=== PATIENT | male | born 1940 | race Caucasian/White ===

== ENCOUNTER → 2016-11-11 | Outpatient (REF) | payer MEDICARE, BC ==
[~2016-11-11] MED LIST: /PANT40TA PO; ASPI81CH PO; BRIM2OPD OU; COUM7.5T PO; DIGO25TA PO; LIPI20TA PO; LOPR100T PO; LOSA25TA8 PO; PRED50TA2 PO; TOPR200T PO; lantanoprost OU
[2016-11-11 13:37] LABS: ALBUMIN 3.8 GM/DL (3.2-5.2); ALBUMIN/GLOBULIN RATIO 1.27 (1.00-1.93); BILIRUBIN,DIRECT 0.2 MG/DL (0.0-0.2); TOTAL PROTEIN 6.8 GM/DL (6.4-8.2)
== END ==
LOC: M LABDRWAD 12:20
PROVIDERS: ATTEND Internal Medicine Cardiovascular Disease
DX: I48.91 Unspecified atrial fibrillation (principal)

== ENCOUNTER → 2016-11-11 | Outpatient (REF) | payer MEDICARE, BC | LOC: M LABDRWAD 12:18 | PROVIDERS: ATTEND Nurse Practitioner Adult Health | DX: N40.0 Benign prostatic hyperplasia without lower urinary tract symptoms (principal) ==

== ENCOUNTER → 2016-11-11 | Outpatient (REF) | payer MEDICARE, BC ==
[2016-11-11 12:51] LABS: BASO % 0.4 % (0.0-1.0); EOS # 0.1 K/mm3 (0.0-0.50); LARGE UNSTAINED CELL # 0.1 K/mm3 (0.0-0.4); LYMPH # 1.1 K/mm3 (1.5-4.5); LYMPH % 19.8 % (24.0-44.0); MEAN CORPUSCULAR HEMOGLOBIN 32.6 pg (27.0-33.0); MEAN CORPUSCULAR HGB CONC 34.9 g/dl (32.0-36.5); MEAN CORPUSCULAR VOLUME 93.3 fl (80.0-96.0); MONO # 0.3 K/mm3 (0.0-0.8); MONO % 5.4 % (0.0-5.0); NEUTROPHILS # 3.8 K/mm3 (1.8-7.7); NEUTROPHILS % 70.5 % (36.0-66.0); PLATELET COUNT, AUTOMATED 158 k/mm3 (150-450); RED CELL DISTRIBUTION WIDTH 13.1 % (11.5-14.5); WHITE BLOOD COUNT 5.4 K/mm3 (4.0-10.0)
[2016-11-11 13:38] LABS: ALBUMIN 3.8 GM/DL (3.2-5.2); ALBUMIN/GLOBULIN RATIO 1.27 (1.00-1.93); CALCIUM LEVEL 9.3 MG/DL (8.8-10.2); CREATININE FOR GFR 1.35 MG/DL (0.70-1.30); GLOMERULAR FILTRATION RATE 54.6 (>42); POTASSIUM SERUM 4.8 MEQ/L (3.5-5.1); TOTAL PROTEIN 6.8 GM/DL (6.4-8.2)
== END | disposition home or self-care (01) ==
LOC: M LAB REF 12:16
PROVIDERS: ATTEND Emergency Medicine
DX: I10 Essential (primary) hypertension (principal); E78.2 Mixed hyperlipidemia; D50.9 Iron deficiency anemia, unspecified; I48.0 Paroxysmal atrial fibrillation; N40.0 Benign prostatic hyperplasia without lower urinary tract symptoms

== ENCOUNTER → 2017-03-27 | Day surgery (SDC) | payer MEDICARE, BC ==
[~2017-03-27] VITALS: Ht 180.3 cm; Wt 78.9 kg
[~2017-03-27] MED LIST changes: +AMIO20TA; +ATEN25TA; +ATEN25TA PO; +ATOR1TAB21; +CICL8SOL3; +COMB0.2S; +FLOM5CAP PO; +LATA5OPD; +LISI-542; +LR 1,000 ML IV ONE; +LR 1,000 ML IV SCH; +ONDANSETRON 4MG/2ML VIAL (J2405) IV PRN; +PANT40TA2; +PROPOFOL 200 MG/20 ML VIAL As Ordered ONE; +TAMSULOSIN; +XARE15TA
--- NOTE | 2017-03-27 08:20 | RO ---
DATE OF PROCEDURE: 03/27/2017 PREPROCEDURE DIAGNOSIS: Atrial flutter. POSTOPERATIVE DIAGNOSIS: Religion of sinus mechanism. PROCEDURE: Direct current cardioversion. SURGEON: Aye Keene MD FOREST PRODUCTS TEACHER: None ANESTHESIOLOGY: Anibal Smith MD BRIEF HISTORY: Mr. Grider is a 76-year-old man that has a history of persistent atypical atrial flutter for years. He was able to maintain sinus rhythm on amiodarone for several years but unfortunately, recently there was a relapse of atypical flutter, which has been difficult to rate control. After we temporarily increased the dose of amiodarone, he was brought to recovery room for direct current (DC) cardioversion. The nature of the procedure was explained to the patient on outpatient basis including the potential complications that include risk of stroke and aspiration pneumonia. He did sign appropriate consent in the office, but unfortunately because it was not delivered to the hospital on time he signed yet another consent before the procedure in the hospital. DESCRIPTION OF PROCEDURE: Procedure was performed in recovery room. Anesthesiology provided sedation. He received total 80 mg of IV propofol. When appropriate level sedation was accomplished, he was cardioverted using defibrillator patches applied in anterior position in biphasic and synchronized mode. It led tenriism to sinus rhythm, manifesting itself as principally atrial pacing. There were no immediate complications, and patient tolerated the procedure well. 12-lead ECG is pending at the time of dictation. After he meets appropriate criteria, he will be discharged home and I will see him in followup next week. JOSE
[2017-03-27 09:21] VITALS: BP 111/75
--- NOTE | 2017-03-27 19:51 | ECGEPIP ---
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
--- NOTE | 2017-03-27 19:52 | ECGEPIP ---
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 LOW QRS VOLTAGE IN EXTREMITY LEADS INFERIOR MYOCARDIAL INFARCTION, OF INDETERMINATE AGE MODERATE T-WAVE ABNORMALITY, CONSIDER ANTEROLATERAL ISCHEMIA Electronically Signed On 03-27-2017 19:52:52 EDT by Benjamín Saldana
== END | disposition home or self-care (01) ==
LOC: M SDC 07:25
PROVIDERS: ATTEND Internal Medicine Cardiovascular Disease
DX: I48.92 Unspecified atrial flutter (principal); I42.8 Other cardiomyopathies; I10 Essential (primary) hypertension; E78.00 Pure hypercholesterolemia, unspecified; K21.9 Gastro-esophageal reflux disease without esophagitis; N40.0 Benign prostatic hyperplasia without lower urinary tract symptoms; Z79.899 Other long term (current) drug therapy; Z79.01 Long term (current) use of anticoagulants; Z95.0 Presence of cardiac pacemaker

== ENCOUNTER → 2017-05-11 | Outpatient (REF) | payer MEDICARE, BC ==
[~2017-05-11] MED LIST changes: +AMIO200T; -AMIO20TA; -LR 1,000 ML IV ONE; -LR 1,000 ML IV SCH; -ONDANSETRON 4MG/2ML VIAL (J2405) IV PRN; -PROPOFOL 200 MG/20 ML VIAL As Ordered ONE
== END ==
LOC: M LABDRWAD 12:40
PROVIDERS: ATTEND Nurse Practitioner Adult Health
DX: N40.0 Benign prostatic hyperplasia without lower urinary tract symptoms (principal); Z79.899 Other long term (current) drug therapy; E78.2 Mixed hyperlipidemia; D50.9 Iron deficiency anemia, unspecified; I10 Essential (primary) hypertension

== ENCOUNTER → 2017-05-11 | Outpatient (REF) | payer MEDICARE, BC ==
[2017-05-11 12:59] LABS: BASO % 0.5 % (0.0-1.0); EOS # 0.1 K/mm3 (0.0-0.50); EOS % 2.4 % (0.0-3.0); LARGE UNSTAINED CELL # 0.1 K/mm3 (0.0-0.4); LARGE UNSTAINED CELL % 1.4 % (0.0-4.0); LYMPH % 16.5 % (24.0-44.0); MEAN CORPUSCULAR HEMOGLOBIN 31.7 pg (27.0-33.0); MEAN CORPUSCULAR HGB CONC 33.4 g/dl (32.0-36.5); MEAN CORPUSCULAR VOLUME 94.9 fl (80.0-96.0); MONO # 0.3 K/mm3 (0.0-0.8); MONO % 5.3 % (0.0-5.0); NEUTROPHILS # 4.3 K/mm3 (1.8-7.7); NEUTROPHILS % 73.9 % (36.0-66.0); PLATELET COUNT, AUTOMATED 149 k/mm3 (150-450); RED CELL DISTRIBUTION WIDTH 13.8 % (11.5-14.5); WHITE BLOOD COUNT 5.8 K/mm3 (4.0-10.0)
[2017-05-11 13:36] LABS: ALBUMIN 3.6 GM/DL (3.2-5.2); ALBUMIN/GLOBULIN RATIO 1.09 (1.00-1.93); BILIRUBIN,TOTAL 1.1 MG/DL (0.2-1.0); CREATININE FOR GFR 1.52 MG/DL (0.70-1.30); GLOMERULAR FILTRATION RATE 47.6 (>42); POTASSIUM SERUM 4.7 MEQ/L (3.5-5.1); TOTAL PROTEIN 6.9 GM/DL (6.4-8.2)
== END ==
LOC: M LABDRWAD 12:38
PROVIDERS: ATTEND Emergency Medicine
DX: E78.2 Mixed hyperlipidemia (principal); D50.9 Iron deficiency anemia, unspecified; I10 Essential (primary) hypertension

== ENCOUNTER → 2017-11-11 | Outpatient (REF) | payer MEDICARE, BC ==
[2017-11-11 13:17] LABS: PROSTATIC SPECIFIC AG MONITOR 4.87 NG/ML (< 4.0)
== END ==
LOC: M LABDRWAD 12:36
DX: N40.0 Benign prostatic hyperplasia without lower urinary tract symptoms (principal)
CPT/HCPCS: 84153

== ENCOUNTER → 2017-11-23 | Outpatient (REF) | payer MEDICARE, BC ==
[2017-11-23 13:50] LABS: BASO # 0.1 10^3/uL (0.0-0.2); BASO % 0.9 % (0.0-1.0); EOS # 0.1 10^3/uL (0.0-0.50); EOS % 2.1 % (0.0-3.0); HEMATOCRIT 43.6 % (42.0-52.0); HEMOGLOBIN 14.8 g/dl (14.0-18.0); IMMATURE GRANULOCYTE % 0.6 % (0-0); LYMPH # 0.9 10^3/uL (1.5-4.5); LYMPH % 16.6 % (24.0-44.0); MEAN CORPUSCULAR HEMOGLOBIN 31.3 pg (27.0-33.0); MEAN CORPUSCULAR HGB CONC 33.9 g/dl (32.0-36.5); MEAN CORPUSCULAR VOLUME 92.2 fl (80.0-96.0); MONO # 0.5 10^3/uL (0.0-0.8); NEUTROPHILS # 3.7 10^3/uL (1.8-7.7); NEUTROPHILS % 69.8 % (36.0-66.0); PLATELET COUNT, AUTOMATED 178 10^3/uL (150-450); RED BLOOD COUNT 4.73 10^6/uL (4.30-6.10); RED CELL DISTRIBUTION WIDTH 13.3 % (11.5-14.5); WHITE BLOOD COUNT 5.3 10^3/uL (4.0-10.0)
[2017-11-23 14:06] LABS: ALBUMIN 3.5 GM/DL (3.2-5.2); ALBUMIN/GLOBULIN RATIO 1.06 (1.00-1.93); ALKALINE PHOSPHATASE 75 U/L (45-117); ALT/SGPT 20 U/L (12-78); ANION GAP 5 MEQ/L (8-16); AST/SGOT 17 U/L (7-37); BLOOD UREA NITROGEN 17 MG/DL (7-18); CALCIUM LEVEL 8.9 MG/DL (8.8-10.2); CARBON DIOXIDE LEVEL 29 MEQ/L (21-32); CHLORIDE LEVEL 108 MEQ/L (98-107); CHOLESTEROL LEVEL 131 MG/DL (<200); CHOLESTEROL RISK RATIO 2.911 (<5); CREATININE FOR GFR 1.21 MG/DL (0.70-1.30); GLOMERULAR FILTRATION RATE > 60.0 (>42); GLUCOSE, FASTING 105 MG/DL (70-100); HDL CHOLESTEROL 45 MG/DL (>40); LDL CHOLESTEROL 72.4 MG/DL (<100); MAGNESIUM LEVEL 2.5 MG/DL (1.8-2.4); NON-HDL-C 86 MG/DL; POTASSIUM SERUM 4.6 MEQ/L (3.5-5.1); SODIUM LEVEL 142 MEQ/L (136-145); TOTAL PROTEIN 6.8 GM/DL (6.4-8.2); TRIGLYCERIDES LEVEL 68 MG/DL (<150)
== END ==
LOC: M LAB REF 13:17
DX: I48.0 Paroxysmal atrial fibrillation (principal); I10 Essential (primary) hypertension; E78.2 Mixed hyperlipidemia; D50.9 Iron deficiency anemia, unspecified
CPT/HCPCS: 83735

== ENCOUNTER → 2018-05-11 | Outpatient (CLI) | payer MEDICARE, BC ==
[2018-05-11 12:55] LABS: BLOOD UREA NITROGEN 24 MG/DL (7-18)
[2018-05-11 12:55] LABS: CREATININE FOR GFR 1.53 MG/DL (0.70-1.30); GLOMERULAR FILTRATION RATE 47.1 (>42); PROSTATIC SPECIFIC AG MONITOR 4.92 NG/ML (< 4.0)
== END ==
LOC: M ADAMS 10:55
DX: N40.0 Benign prostatic hyperplasia without lower urinary tract symptoms (principal)
CPT/HCPCS: 82565

== ENCOUNTER → 2018-05-24 | Outpatient (REF) | payer MEDICARE, BC ==
[2018-05-24 12:59] LABS: BASO % 0.5 % (0.0-1.0); EOS # 0.1 10^3/uL (0.0-0.50); EOS % 1.7 % (0.0-3.0); HEMATOCRIT 42.7 % (42.0-52.0); HEMOGLOBIN 14.3 g/dl (13.5-17.5); IMMATURE GRANULOCYTE % 0.3 % (0-3.0); LYMPH % 16.6 % (24.0-44.0); MEAN CORPUSCULAR HEMOGLOBIN 31.2 pg (27.0-33.0); MEAN CORPUSCULAR HGB CONC 33.5 g/dl (32.0-36.5); MONO # 0.5 10^3/uL (0.0-0.8); MONO % 8.4 % (0.0-5.0); NEUTROPHILS # 4.2 10^3/uL (1.8-7.7); NEUTROPHILS % 72.5 % (36.0-66.0); PLATELET COUNT, AUTOMATED 144 10^3/uL (150-450); RED BLOOD COUNT 4.59 10^6/uL (4.30-6.10); RED CELL DISTRIBUTION WIDTH 14.5 % (11.5-14.5); WHITE BLOOD COUNT 5.8 10^3/uL (4.0-10.0)
[2018-05-24 13:32] LABS: ALBUMIN 3.4 GM/DL (3.2-5.2); ALBUMIN/GLOBULIN RATIO 1.06 (1.00-1.93); ALKALINE PHOSPHATASE 71 U/L (45-117); ALT/SGPT 47 U/L (12-78); ANION GAP 7 MEQ/L (8-16); AST/SGOT 36 U/L (7-37); BILIRUBIN,TOTAL 0.8 MG/DL (0.2-1.0); BLOOD UREA NITROGEN 21 MG/DL (7-18); CALCIUM LEVEL 8.8 MG/DL (8.8-10.2); CARBON DIOXIDE LEVEL 29 MEQ/L (21-32); CHLORIDE LEVEL 108 MEQ/L (98-107); CHOLESTEROL LEVEL 123 MG/DL (<200); CHOLESTEROL RISK RATIO 2.795 (<5); CREATININE FOR GFR 1.45 MG/DL (0.70-1.30); GLOMERULAR FILTRATION RATE 50.1 (>42); GLUCOSE, FASTING 103 MG/DL (70-100); HDL CHOLESTEROL 44 MG/DL (>40); LDL CHOLESTEROL 60.6 MG/DL (<100); NON-HDL-C 79 MG/DL; POTASSIUM SERUM 4.7 MEQ/L (3.5-5.1); SODIUM LEVEL 144 MEQ/L (136-145); TOTAL PROTEIN 6.6 GM/DL (6.4-8.2); TRIGLYCERIDES LEVEL 92 MG/DL (<150)
== END ==
LOC: M LABDRWAD 12:30
DX: I10 Essential (primary) hypertension (principal); E78.2 Mixed hyperlipidemia; Z00.00 Encounter for general adult medical examination without abnormal findings
CPT/HCPCS: 80053

== ENCOUNTER 2018-06-14 07:24 | Day surgery (SDC) | payer MEDICARE, BC ==
[2018-06-14] MEDS: NS 1,000 ML IV (07:58)
[2018-06-14] MEDS ORDERED: PROPOFOL 200 MG/20 ML VIAL As Ordered (09:06)
== END 2018-06-14 10:01 | disposition home or self-care (01) ==
LOC: M OPP 07:24
DX: Z12.11 Encounter for screening for malignant neoplasm of colon (principal); Z86.010 Personal history of colon polyps; Z80.0 Family history of malignant neoplasm of digestive organs; D12.5 Benign neoplasm of sigmoid colon; D12.2 Benign neoplasm of ascending colon; D12.0 Benign neoplasm of cecum; K57.30 Diverticulosis of large intestine without perforation or abscess without bleeding; K64.0 First degree hemorrhoids; I48.91 Unspecified atrial fibrillation; I10 Essential (primary) hypertension; E78.5 Hyperlipidemia, unspecified; Z95.0 Presence of cardiac pacemaker; K21.9 Gastro-esophageal reflux disease without esophagitis; R12 Heartburn; R23.3 Spontaneous ecchymoses; N40.1 Benign prostatic hyperplasia with lower urinary tract symptoms; Z79.899 Other long term (current) drug therapy; Z79.01 Long term (current) use of anticoagulants
CPT/HCPCS: 45385

== ENCOUNTER → 2018-12-15 | Outpatient (REF) | payer MEDICARE, BC ==
[~2018-12-15] MED LIST changes: -AMIO200T; +AMIO200T PO; -COMB0.2S; +COMB0.2S OU; +FLOM0.4C39 PO; -FLOM5CAP PO; -LATA5OPD; +LATA5OPD OU; -PANT40TA2; +PANT40TA3
== END ==
LOC: M SFHCADAM 09:31
PROVIDERS: ATTEND Family Medicine
DX: E78.5 Hyperlipidemia, unspecified (principal); I11.0 Hypertensive heart disease with heart failure; K22.70 Barrett's esophagus without dysplasia; E53.8 Deficiency of other specified B group vitamins; Z79.01 Long term (current) use of anticoagulants; R73.03 Prediabetes; Z53.8 Procedure and treatment not carried out for other reasons

== ENCOUNTER → 2019-04-21 | Outpatient (CLI) | payer MEDICARE, BC ==
[~2019-04-21] MED LIST changes: -/PANT40TA PO; +LATA0.0013 OU; -LATA5OPD OU; +METO200T41 PO; +PROT1TAB2 PO; -TOPR200T PO
[2019-04-21 13:17] LABS: HEMATOCRIT 45.5 % (42.0-52.0); HEMOGLOBIN 15.1 g/dl (13.5-17.5); MEAN CORPUSCULAR HEMOGLOBIN 30.8 pg (27.0-33.0); MEAN CORPUSCULAR HGB CONC 33.2 g/dl (32.0-36.5); MEAN CORPUSCULAR VOLUME 92.7 fl (80.0-96.0); PLATELET COUNT, AUTOMATED 188 10^3/uL (150-450); RED BLOOD COUNT 4.91 10^6/uL (4.30-6.10); WHITE BLOOD COUNT 5.9 10^3/uL (4.0-10.0)
[2019-04-21 13:21] LABS: CALCIUM LEVEL 9.5 MG/DL (8.8-10.2); CREATININE FOR GFR 1.36 MG/DL (0.70-1.30); GLOMERULAR FILTRATION RATE 53.8 (>42); POTASSIUM SERUM 4.6 MEQ/L (3.5-5.1)
== END ==
LOC: M SMT 09:45
PROVIDERS: ATTEND Internal Medicine Cardiovascular Disease
DX: I48.0 Paroxysmal atrial fibrillation (principal); I42.9 Cardiomyopathy, unspecified

== ENCOUNTER 2019-06-02 05:53 | Day surgery (SDC) | payer MEDICARE, BC ==
[~2019-06-02] VITALS: Ht 180.3 cm; Wt 74.1 kg
[~2019-06-02 05:53] MED LIST changes: +BIMA01SOL OP; +METO25TA4 PO; +SILD100T PO
[2019-06-02] MEDS ORDERED: LR 1,000 ML IV ONE (06:45)
[2019-06-02] MEDS ORDERED: PROPOFOL 200 MG/20 ML VIAL As Ordered ONE (06:56)
[2019-06-02] MEDS ORDERED: LIDOCAINE 2% INJ 100 MG/5 ML SDV (FOR ANES.) As Ordered ONE (06:56)
--- NOTE | 2019-06-02 07:33 | RO ---
DATE OF PROCEDURE: 06/02/2019 INDICATION: Atrial flutter. PROCEDURE: Cardioversion. POSTPROCEDURE DIAGNOSIS: Resumption of sinus rhythm. SURGEON: Dr. Aye Keene COMPANY CONTROLLER: Heri Smith DO and Elisabeth Mccartney CRNA ANESTHESIA: BRIEF HISTORY: Mr. Grider is a 78-year-old man who has history of paroxysmal atrial flutter that is atypical in nature. He had two ablations in the distant past, but was doing well in the last 2 years until he relapsed 2 months ago. In spite of rate controlling medications and amiodarone, he has been challenging to accomplish rate control. Consequently, we decided to proceed with direct current (DC) cardioversion. DESCRIPTION OF PROCEDURE: The consent for the procedure was obtained previously on outpatient basis. The patient presented to the recovery room in a fasting condition. After appropriate time out was taken and all appropriate monitors were applied, he was cardioverted using 125 joules of energy applied in synchronized fashion. It led to buddhism of sinus mechanism with onset of atrial pacing. He tolerated the procedure well and there were no immediate complications. A 12-lead ECG is pending at the time of my dictation. He will be discharged home on his chronic medications and followup will be arranged in our office in approximately 1-2 weeks.
[2019-06-02 08:15] VITALS: BP 109/74
--- NOTE | 2019-06-02 09:59 | ECGEPIP ---
[facility] Test Date: 2019-06-02 Pat Name: TAMARA RICHARD Department: Room: - Gender: Male Member Service Specialist: BRI : 1940 Requested By: Aye Keene Order Number: [id number] Reading MD: Benjamín Rivero Measurements Intervals [place] Rate: 110 P: -26 [place]: 245 QRS: -69 QRSD: 186 T: 83 QT: 432 QTc: 587 Interpretive Statements ELECTRONIC VENTRICULAR PACEMAKER ABNORMAL RHYTHM ECG Electronically Signed on 06-02-2019 9:59:25 EDT by Benjamín Rivero
--- NOTE | 2019-06-02 10:01 | ECGEPIP ---
[facility] Test Date: 2019-06-02 Pat Name: TAMARA RICHARD Department: Room: - Gender: Male Crew Leader: BRI : 1940 Requested By: Aye Keene Order Number: [id number] Reading MD: Benjamín Rivero Measurements Intervals [place] Rate: 60 P: 266 CA: 277 QRS: -38 QRSD: 111 T: 267 QT: 457 QTc: 457 Interpretive Statements ELECTRONIC ATRIAL PACEMAKER Low QRS complex voltage in the limb leads Delayed anterior R wave progression INFERIOR MYOCARDIAL INFARCTION, OF INDETERMINATE AGE MODERATE T-WAVE ABNORMALITY, CONSIDER ANTEROLATERAL ISCHEMIA Previous tracing done 06-02-19 at 0628 show Ventricular pacing Electronically Signed on 06-02-2019 10:01:43 EDT by Benjamín Rivero
== END 2019-06-02 08:24 | disposition home or self-care (01) ==
LOC: M SDC 05:53
PROVIDERS: ATTEND Internal Medicine Cardiovascular Disease
DX: I48.0 Paroxysmal atrial fibrillation (principal); I10 Essential (primary) hypertension; E78.5 Hyperlipidemia, unspecified; Z79.01 Long term (current) use of anticoagulants; Z79.899 Other long term (current) drug therapy; Z95.0 Presence of cardiac pacemaker; N40.0 Benign prostatic hyperplasia without lower urinary tract symptoms

== ENCOUNTER → 2019-06-13 | Outpatient (REF) | payer MEDICARE, BC ==
[2019-06-13 12:33] LABS: HEMATOCRIT 45.4 % (42.0-52.0); HEMOGLOBIN 14.9 g/dl (13.5-17.5); MEAN CORPUSCULAR HEMOGLOBIN 30.7 pg (27.0-33.0); MEAN CORPUSCULAR HGB CONC 32.8 g/dl (32.0-36.5); MEAN CORPUSCULAR VOLUME 93.6 fl (80.0-96.0); PLATELET COUNT, AUTOMATED 136 10^3/uL (150-450); RED BLOOD COUNT 4.85 10^6/uL (4.30-6.10); WHITE BLOOD COUNT 4.7 10^3/uL (4.0-10.0)
[2019-06-13 12:44] LABS: ALBUMIN 3.5 GM/DL (3.2-5.2); BILIRUBIN,TOTAL 1.3 MG/DL (0.2-1.0); CHOLESTEROL RISK RATIO 2.6 (<5); CREATININE FOR GFR 1.43 MG/DL (0.70-1.30); GLOMERULAR FILTRATION RATE 50.8 (>42); POTASSIUM SERUM 4.2 MEQ/L (3.5-5.1); TOTAL PROTEIN 6.8 GM/DL (6.4-8.2)
[2019-06-13 13:11] LABS: HEMOGLOBIN A1c 6.1 %
== END ==
LOC: M SFHCADAM 08:18
PROVIDERS: ATTEND Family Medicine
DX: E78.5 Hyperlipidemia, unspecified (principal); I11.0 Hypertensive heart disease with heart failure; K22.70 Barrett's esophagus without dysplasia; E53.8 Deficiency of other specified B group vitamins; Z79.01 Long term (current) use of anticoagulants; R73.03 Prediabetes

== ENCOUNTER → 2019-09-16 | Outpatient (CLI) | payer MEDICARE, BC ==
[2019-09-16 15:14] LABS: ALBUMIN 3.4 GM/DL (3.2-5.2); BILIRUBIN,DIRECT 0.2 MG/DL (0.0-0.2); BILIRUBIN,TOTAL 0.9 MG/DL (0.2-1.0); TOTAL PROTEIN 6.9 GM/DL (6.4-8.2)
== END ==
LOC: M LAB 13:49
PROVIDERS: ATTEND Dermatology
DX: B35.3 Tinea pedis (principal)
CPT/HCPCS: 17000; 17003; 17110; 36415; 80076; G0463

== ENCOUNTER → 2019-09-16 | Outpatient (REF) | payer MEDICARE, BC | LOC: M SFHCDERM 13:39 | PROVIDERS: ATTEND Dermatology | DX: B35.3 Tinea pedis (principal); Z53.8 Procedure and treatment not carried out for other reasons ==

== ENCOUNTER → 2019-10-12 | Outpatient (REF) | payer MEDICARE, BC | LOC: M LAB REF 18:35 | PROVIDERS: ATTEND Dermatology | DX: L72.0 Epidermal cyst (principal) ==

== ENCOUNTER → 2019-10-31 | Outpatient (CLI) | payer MEDICARE, BC ==
--- NOTE | 2019-10-31 13:27 | REP ---
Clinical: Venous insufficiency . Technique: Hernandez scale and color Doppler evaluation using linear high frequency transducer with reflux evaluation. Findings: Ultrasound examination of the right and left lower extremity deep venous structures from the common femoral vein to the popliteal vein demonstrates normal compressibility flow and wave patterns in response to respiration and augmentation. There is no evidence for deep venous thrombosis. 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 Right lower extremity demonstrates reflux through the deep system as well as reflux involving the proximal greater saphenous vein measuring 12.9 mm diameter with reflux duration 4.6 seconds and mid greater saphenous vein measuring 5.1 mm diameter with reflux duration 4.6 seconds. A large collateral vessels identified off the mid greater saphenous vein. Left lower extremity demonstrates reflux through the deep system. No evidence of reflux through the superficial system. Impression: No evidence for deep venous thrombosis. Reflux as noted above. Electronically Signed by Arley Kwon MD 10/31/2019 01:19 P
== END ==
LOC: M RAD 11:30
PROVIDERS: ATTEND Physician Assistant
DX: I82.812 Embolism and thrombosis of superficial veins of left lower extremity (principal)

== ENCOUNTER → 2020-05-21 | Outpatient (REF) | payer MEDICARE, BC ==
[~2020-05-21] MED LIST changes: -AMIO200T PO; +AMIO200T3 PO; +PANT40TA29; -PANT40TA3
[2020-05-21 13:21] LABS: HEMATOCRIT 44.7 % (42.0-52.0); HEMOGLOBIN 14.8 g/dl (13.5-17.5); MEAN CORPUSCULAR HGB CONC 33.1 g/dl (32.0-36.5); MEAN CORPUSCULAR VOLUME 93.7 fl (80.0-96.0); PLATELET COUNT, AUTOMATED 302 10^3/uL (150-450); RED BLOOD COUNT 4.77 10^6/uL (4.30-6.10); WHITE BLOOD COUNT 8.8 10^3/uL (4.0-10.0)
[2020-05-21 13:24] LABS: ALBUMIN 2.8 GM/DL (3.2-5.2); BILIRUBIN,TOTAL 0.9 MG/DL (0.2-1.0); CHOLESTEROL RISK RATIO 3.5 (<5); CREATININE FOR GFR 1.42 MG/DL (0.70-1.30); GLOMERULAR FILTRATION RATE 51.1 (>35); POTASSIUM SERUM 4.9 MEQ/L (3.5-5.1); PROSTATIC SPECIFIC AG MONITOR 8.24 NG/ML (< 4.00); TOTAL PROTEIN 6.5 GM/DL (6.4-8.2)
[2020-05-21 13:44] LABS: HEMOGLOBIN A1c 5.8 %
== END ==
LOC: M SFHCADAM 09:01
PROVIDERS: ATTEND Family Medicine
DX: D50.9 Iron deficiency anemia, unspecified (principal); N18.3 Chronic kidney disease, stage 3 (moderate); E78.2 Mixed hyperlipidemia; R73.03 Prediabetes; E78.5 Hyperlipidemia, unspecified; E53.8 Deficiency of other specified B group vitamins; R97.20 Elevated prostate specific antigen [PSA]; Z79.01 Long term (current) use of anticoagulants

== ENCOUNTER → 2020-08-17 | Outpatient (REF) | payer MEDICARE, BC | LOC: M LAB REF 12:32 → M LABDRWAD 12:32 | PROVIDERS: ATTEND Nurse Practitioner Adult Health | DX: N42.9 Disorder of prostate, unspecified (principal) ==

== ENCOUNTER → 2020-12-27 | Outpatient (REF) | payer MEDICARE, BC ==
[~2020-12-27] MED LIST changes: -LISI-542; +LISI-898
[2020-12-27 18:01] LABS: BLOOD UREA NITROGEN 18 MG/DL (7-18); CARBON DIOXIDE LEVEL 30 MEQ/L (21-32); CHLORIDE LEVEL 107 MEQ/L (98-107); CREATININE FOR GFR 1.22 MG/DL (0.70-1.30); GLOMERULAR FILTRATION RATE > 60.0 (>35); GLUCOSE, FASTING 92 MG/DL (70-100); POTASSIUM SERUM 4.5 MEQ/L (3.5-5.1); SODIUM LEVEL 140 MEQ/L (136-145)
== END ==
LOC: M LABDRWAD 16:15 → M LAB REF 16:15
PROVIDERS: ATTEND Physician Assistant
DX: E78.2 Mixed hyperlipidemia (principal)
CPT/HCPCS: 36415; 80048; G0463

== ENCOUNTER → 2021-09-18 | Outpatient (REF) | payer MEDICARE, BC ==
[2021-09-18 12:48] LABS: HEMATOCRIT 44.1 % (42.0-52.0); HEMOGLOBIN 14.6 g/dl (13.5-17.5); MEAN CORPUSCULAR HEMOGLOBIN 30.8 pg (27.0-33.0); MEAN CORPUSCULAR HGB CONC 33.1 g/dl (32.0-36.5); PLATELET COUNT, AUTOMATED 143 10^3/uL (150-450); RED BLOOD COUNT 4.74 10^6/uL (4.30-6.10)
[2021-09-18 13:20] LABS: ALBUMIN 3.3 GM/DL (3.2-5.2); BILIRUBIN,TOTAL 1.7 MG/DL (0.2-1.0); CALCIUM LEVEL 9.5 MG/DL (8.8-10.2); CHOLESTEROL RISK RATIO 2.914 (<5); CREATININE FOR GFR 1.28 MG/DL (0.70-1.30); GLOMERULAR FILTRATION RATE 57.4 (>35); POTASSIUM SERUM 4.7 MEQ/L (3.5-5.1); TOTAL PROTEIN 6.8 GM/DL (6.4-8.2)
== END ==
LOC: M LABDRWAD 12:35
PROVIDERS: ATTEND Physician Assistant
DX: E78.2 Mixed hyperlipidemia (principal)

== ENCOUNTER → 2022-10-15 | Outpatient (REF) | payer MEDICARE, BC ==
[~2022-10-15] MED LIST changes: -AMIO200T3 PO; +AMIO200T49 PO; +CICL6.6S; -CICL8SOL3; -LISI-898; +LISI5TAB11
== END ==
LOC: M LABDRWAD 12:51
PROVIDERS: ATTEND Nurse Practitioner Adult Health
DX: N40.1 Benign prostatic hyperplasia with lower urinary tract symptoms (principal)

== ENCOUNTER → 2022-12-15 | Outpatient (REF) | payer MEDICARE, BC ==
[2022-12-15 13:00] LABS: HEMATOCRIT 44.7 % (42.0-52.0); HEMOGLOBIN 14.8 g/dl (13.5-17.5); MEAN CORPUSCULAR HEMOGLOBIN 30.9 pg (27.0-33.0); MEAN CORPUSCULAR HGB CONC 33.1 g/dl (32.0-36.5); MEAN CORPUSCULAR VOLUME 93.3 fl (80.0-96.0); PLATELET COUNT, AUTOMATED 172 10^3/uL (150-450); RED BLOOD COUNT 4.79 10^6/uL (4.30-6.10)
[2022-12-15 13:37] LABS: HEMOGLOBIN A1c 5.8 % (4.0-6.0)
[2022-12-15 13:46] LABS: ALBUMIN 3.5 G/DL (3.2-5.2); CALCIUM LEVEL 9.4 MG/DL (8.3-10.6); CHOLESTEROL RISK RATIO 2.85 (<5); CREATININE FOR GFR 1.24 MG/DL (0.70-1.30); GLOMERULAR FILTRATION RATE 59.3 (>35); HDL CHOLESTEROL 41.7 MG/DL (>40); LDL CHOLESTEROL 59.3 MG/DL (<100); POTASSIUM SERUM 4.4 MMOL/L (3.5-5.1); TOTAL PROTEIN 6.6 G/DL (5.7-8.2)
== END ==
LOC: M SFHCADAM 08:55
PROVIDERS: ATTEND Family Medicine
DX: E78.2 Mixed hyperlipidemia (principal); Z85.820 Personal history of malignant melanoma of skin; I11.0 Hypertensive heart disease with heart failure; K22.70 Barrett's esophagus without dysplasia; R73.03 Prediabetes

== ENCOUNTER → 2023-01-30 | Outpatient (REF) | payer MEDICARE, BC | LOC: M SFHCDERM 14:00 | PROVIDERS: ATTEND Nurse Practitioner Family | DX: D22.61 Melanocytic nevi of right upper limb, including shoulder (principal) ==

== ENCOUNTER → 2023-03-17 | Outpatient (REF) | payer MEDICARE, BC | LOC: M LAB REF 17:42 | PROVIDERS: ATTEND Surgery | DX: L57.9 Skin changes due to chronic exposure to nonionizing radiation, unspecified (principal); L90.5 Scar conditions and fibrosis of skin ==

== ENCOUNTER 2023-06-04 12:33 | Emergency (ER) | payer MEDICARE, BC ==
[~2023-06-04] VITALS: Ht 177.8 cm; Wt 68.6 kg
[2023-06-04] MEDS ORDERED: CEPHALEXIN 500 MG CAP PO ONE (16:05)
[2023-06-04] MEDS ORDERED: CEPH500C PO (16:05)
[2023-06-04] MEDS ORDERED: LIDOCAINE 2% 5ML JELLY UROJET TOP ONE (16:20)
[2023-06-04 16:32] VITALS: BP 126/69; TEMP 98.4; O2SAT 99
== END 2023-06-04 16:34 | disposition home or self-care (01) ==
LOC: M ED 12:33
DX: N39.0 Urinary tract infection, site not specified (principal); R33.9 Retention of urine, unspecified; N40.0 Benign prostatic hyperplasia without lower urinary tract symptoms; I10 Essential (primary) hypertension; Z95.0 Presence of cardiac pacemaker

== ENCOUNTER 2023-06-24 02:47 | Emergency (ER) | payer MEDICARE, BC ==
[~2023-06-24] VITALS: Ht 177.8 cm; Wt 76.7 kg
[~2023-06-24 02:47] MED LIST changes: +CEPH500C PO
[2023-06-24] MEDS ORDERED: CEFD300C41 PO (05:02)
[2023-06-24] MEDS ORDERED: CEFDINIR 300 MG CAP (OMNICEF) PO ONE (05:05)
[2023-06-24 05:27] VITALS: BP 117/71; TEMP 98.6; O2SAT 99
== END 2023-06-24 05:29 | disposition home or self-care (01) ==
LOC: M ED 02:47
DX: R33.9 Retention of urine, unspecified (principal); I10 Essential (primary) hypertension; N40.1 Benign prostatic hyperplasia with lower urinary tract symptoms; Z79.01 Long term (current) use of anticoagulants; Z79.899 Other long term (current) drug therapy

== ENCOUNTER → 2023-07-01 | Outpatient (REF) | payer MEDICARE, BC ==
[~2023-07-01] MED LIST changes: +CEFD300C41 PO
[2023-07-01 13:03] LABS: INR 1.91; PROTHROMBIN TIME 21.4 SECONDS (12.5-14.5)
[2023-07-01 13:04] LABS: PARTIAL THROMBOPLASTIN TIME 50.2 SECONDS (24.8-34.2)
[2023-07-01 13:26] LABS: BASO # 0.1 10^3/uL (0.0-0.2); BASO % 0.8 % (0.0-1.0); EOS # 0.2 10^3/uL (0.0-0.5); EOS % 3.7 % (0.0-3.0); HEMATOCRIT 41.5 % (42.0-52.0); HEMOGLOBIN 13.9 g/dl (13.5-17.5); LYMPH # 1.2 10^3/uL (1.5-5.0); LYMPH % 19.6 % (24.0-44.0); MEAN CORPUSCULAR HEMOGLOBIN 31.9 pg (27.0-33.0); MEAN CORPUSCULAR HGB CONC 33.5 g/dl (32.0-36.5); MEAN CORPUSCULAR VOLUME 95.2 fl (80.0-96.0); MONO # 0.5 10^3/uL (0.0-0.8); MONO % 8.2 % (2.0-8.0); NEUTROPHILS # 4.1 10^3/uL (1.5-8.5); NEUTROPHILS % 67.4 % (36.0-66.0); PLATELET COUNT, AUTOMATED 178 10^3/uL (150-450); RED BLOOD COUNT 4.36 10^6/uL (4.30-6.10)
[2023-07-01 13:53] LABS: ALBUMIN 3.2 G/DL (3.2-5.2); ALKALINE PHOSPHATASE 66 U/L (46-116); ALT/SGPT 15 U/L (7.0-40); AST/SGOT 13 U/L (<34); BILIRUBIN,TOTAL 0.8 MG/DL (0.3-1.2); BLOOD UREA NITROGEN 18 MG/DL (9-23); CARBON DIOXIDE LEVEL 29 MMOL/L (20-31); CHLORIDE LEVEL 107 MMOL/L (98-107); CREATININE FOR GFR 1.18 MG/DL (0.70-1.30); GLOMERULAR FILTRATION RATE > 60.0 (>35); GLUCOSE, FASTING 111 MG/DL (74-106); POTASSIUM SERUM 4.4 MMOL/L (3.5-5.1); SODIUM LEVEL 142 MMOL/L (136-145); TOTAL PROTEIN 6.5 G/DL (5.7-8.2)
== END ==
LOC: M LABDRWAD 12:28
PROVIDERS: ATTEND Urology
DX: N40.1 Benign prostatic hyperplasia with lower urinary tract symptoms (principal); R33.8 Other retention of urine

== ENCOUNTER → 2023-07-12 | Outpatient (CLI) | payer MEDICARE, BC ==
[2023-07-12 10:17] LABS: INR 1.25; PROTHROMBIN TIME 15.4 SECONDS (12.5-14.5)
== END ==
LOC: M LAB 09:19
PROVIDERS: ATTEND Physician Assistant
DX: I48.91 Unspecified atrial fibrillation (principal)

== ENCOUNTER → 2023-12-22 | Outpatient (REF) | payer MEDICARE, BC ==
[~2023-12-22] MED LIST changes: +CEFD1CAP9 PO; -CEFD300C41 PO
[2023-12-22 14:11] LABS: HEMATOCRIT 38.5 % (42.0-52.0); HEMOGLOBIN 12.3 g/dl (13.5-17.5); IRON (FE) 67 UG/DL (65-175); MEAN CORPUSCULAR HEMOGLOBIN 28.1 pg (27.0-33.0); MEAN CORPUSCULAR HGB CONC 31.9 g/dl (32.0-36.5); MEAN CORPUSCULAR VOLUME 87.9 fl (80.0-96.0); PERCENT SATURATION 21.5 % (19.7-50.0); PLATELET COUNT, AUTOMATED 183 10^3/uL (150-450); RED BLOOD COUNT 4.38 10^6/uL (4.30-6.10); TOTAL IRON BINDING CAPACITY 311 UG/DL (250-425); WHITE BLOOD COUNT 6.9 10^3/uL (4.0-10.0)
[2023-12-22 14:12] LABS: ALBUMIN 3.3 G/DL (3.2-5.2); ALKALINE PHOSPHATASE 67 U/L (46-116); ALT/SGPT 14 U/L (7.0-40); AST/SGOT 11 U/L (<34); BILIRUBIN,TOTAL 1.1 MG/DL (0.3-1.2); BLOOD UREA NITROGEN 17 MG/DL (9-23); CARBON DIOXIDE LEVEL 29 MMOL/L (20-31); CHLORIDE LEVEL 107 MMOL/L (98-107); CHOLESTEROL LEVEL 124 MG/DL (<200); CHOLESTEROL RISK RATIO 2.72 (<5); CREATININE FOR GFR 1.18 MG/DL (0.70-1.30); GLOMERULAR FILTRATION RATE > 60.0 (>35); GLUCOSE, FASTING 109 MG/DL (74-106); HDL CHOLESTEROL 45.5 MG/DL (>40); LDL CHOLESTEROL 59.9 MG/DL (<100); NON-HDL-C 78.5 MG/DL; POTASSIUM SERUM 4.1 MMOL/L (3.5-5.1); SODIUM LEVEL 139 MMOL/L (136-145); THYROID STIMULATING HORMONE 3.246 uIU/ML (0.55-4.78); TOTAL PROTEIN 6.5 G/DL (5.7-8.2); TRIGLYCERIDES LEVEL 93 MG/DL (<150)
[2023-12-22 14:13] LABS: FERRITIN 11.5 NG/ML (10.5-307.3); FREE T4 0.85 NG/DL (0.89-1.76)
[2023-12-22 14:14] LABS: VITAMIN B12 LEVEL 510 PG/ML (211-911)
[2023-12-22 14:49] LABS: HEMOGLOBIN A1c 5.9 % (4.0-6.0)
== END ==
LOC: M SFHCADAM 09:01
PROVIDERS: ATTEND Family Medicine
DX: E78.2 Mixed hyperlipidemia (principal); I48.91 Unspecified atrial fibrillation; D50.9 Iron deficiency anemia, unspecified; E53.8 Deficiency of other specified B group vitamins; R73.03 Prediabetes; I11.0 Hypertensive heart disease with heart failure

== ENCOUNTER → 2025-08-21 | Outpatient (REF) | payer MEDICARE, BC ==
[~2025-08-21] MED LIST changes: -AMIO200T49 PO; +AMIO200T54 PO; -FLOM0.4C39 PO; +TAMS-18 PO
[2025-08-21 14:26] LABS: CALCIUM LEVEL 9.0 MG/DL (8.3-10.6); CARBON DIOXIDE LEVEL 27.0 MMOL/L (20-31); CHLORIDE LEVEL 107.0 MMOL/L (98-107); CREATININE FOR GFR 1.28 MG/DL (0.70-1.30); GLOMERULAR FILTRATION RATE 54.9 (>35); POTASSIUM SERUM 4.5 MMOL/L (3.5-5.1); SODIUM LEVEL 144.0 MMOL/L (136-145)
== END ==
LOC: M LABDRWAD 12:50
PROVIDERS: ATTEND Nurse Practitioner Adult Health
DX: R31.21 Asymptomatic microscopic hematuria (principal)